=== PATIENT | female | born 1990 | race Two or more races ===

== ENCOUNTER 2018-03-03 20:26 | Emergency (ER) | payer MEDICAID ==
--- NOTE | 2018-03-03 22:38 | NUR ---
INFORMED "PT LEFT LONG TIME AGO"
== END 2018-03-03 22:39 | disposition left against medical advice (07) ==
LOC: ER 20:32
DX: M79.673 Pain in unspecified foot (principal); Z53.21 Procedure and treatment not carried out due to patient leaving prior to being seen by health care provider

== ENCOUNTER 2019-01-06 09:09 | Emergency (ER) | payer MEDICAID ==
[~2019-01-06] VITALS: Ht 167.6 cm; Wt 76.2 kg
[2019-01-06 09:15] VITALS: BP 142/90
[2019-01-06] MEDS ORDERED: ACETAMINOPHEN ES 500 MG TABLET ONE ×2 (09:27→09:28)
[2019-01-06] MEDS ORDERED: ACETAMINOPHEN ES 500 MG TABLET PO ONE (09:30)
--- NOTE | 2019-01-06 10:11 | NUR ---
Patient discharged to home in stable condition. Written and verbal after care instructions given. Patient verbalizes understanding of instruction.
== END 2019-01-06 10:11 | disposition home or self-care (01) ==
LOC: ER 09:09
DX: S80.11XA Contusion of right lower leg, initial encounter (principal); W22.8XXA Striking against or struck by other objects, initial encounter; Y93.89 Activity, other specified; Y92.89 Other specified places as the place of occurrence of the external cause; Y99.8 Other external cause status
CPT/HCPCS: 73590-TC

== ENCOUNTER 2019-07-12 09:13 | Emergency (ER) | payer MEDICAID ==
[~2019-07-12] VITALS: Ht 167.6 cm; Wt 69.9 kg
[2019-07-12 09:27] VITALS: BP 145/100
[2019-07-12] MEDS ORDERED: predniSONE 20 MG TABLET PO ONE (10:00)
[2019-07-12] MEDS ORDERED: DIPHENHYDRAMINE HCL 12.5 MG/5 ML UDC PO ONE (10:00)
[2019-07-12] MEDS ORDERED: diphenhydrAMINE HCL 25 MG CAPSULE ONE (10:28)
[2019-07-12] MEDS ORDERED: predniSONE 20 MG TABLET ONE (10:28)
--- NOTE | 2019-07-12 10:39 | NUR ---
Patient discharged to home in stable condition. Written and verbal after care instructions given. Patient verbalizes understanding of instruction. No obvious distess No acute changes
== END 2019-07-12 10:40 | disposition home or self-care (01) ==
LOC: ER 09:13
DX: T78.1XXA Other adverse food reactions, not elsewhere classified, initial encounter (principal); R22.0 Localized swelling, mass and lump, head; X58.XXXA Exposure to other specified factors, initial encounter
CPT/HCPCS: 99283; J7512; Q0163 ×2

== ENCOUNTER 2023-06-10 18:33 | Emergency (ER) | payer MEDICAID ==
[~2023-06-10] VITALS: Ht 165.1 cm; Wt 81.6 kg
[2023-06-10 19:04] VITALS: BP 143/88; TEMP 99.1; O2SAT 98
[2023-06-10] MEDS ORDERED: KETOROLAC TROMETHAMINE INJ 30 MG/ML VIAL IM ONE (19:30)
[2023-06-10] MEDS ORDERED: KETOROLAC TROMETHAMINE 15 MG/ML VIAL ONE (19:47)
[2023-06-10] MEDS ORDERED: HYDR-4209 PO (21:11)
== END 2023-06-10 21:26 | disposition home or self-care (01) ==
LOC: ER 18:33
DX: M79.641 Pain in right hand (principal); Z79.899 Other long term (current) drug therapy
CPT/HCPCS: 99283; 96372; 73130; J1885

== ENCOUNTER 2024-02-10 19:16 | Emergency (ER) | payer MEDICAID, OTHER ==
[~2024-02-10] VITALS: Ht 165.1 cm; Wt 77.1 kg
[~2024-02-10 19:16] MED LIST: HYDR-4209 PO
[2024-02-10 20:30] VITALS: BP 146/95; TEMP 98.3; O2SAT 100
[2024-02-10] MEDS ORDERED: IBUP-1955 PO (20:47)
== END 2024-02-10 21:39 | disposition home or self-care (01) ==
LOC: ER 19:17
DX: S09.8XXA Other specified injuries of head, initial encounter (principal); X58.XXXA Exposure to other specified factors, initial encounter; Y93.89 Activity, other specified; Y92.89 Other specified places as the place of occurrence of the external cause; Y99.8 Other external cause status